=== PATIENT | female | born 1960 | race Caucasian/White ===

== ENCOUNTER 2022-07-27 17:46 | Inpatient (IN) | payer OTHER, SELFPAY ==
[2022-07-27 18:12] LABS: #Basophils 0.1 thou/uL (0.0-0.2); #Eosinphils 0.2 thou/uL (0.0-0.7); #Lymphocytes 1.6 thou/uL (1.20-3.40); #Monocytes 0.4 thou/uL (0.11-0.59); #Neutrophils 4.4 thou/uL (1.40-6.50); %Eosinophils 3.6 % (0.0-10.0); %Lymphocytes 24.1 % (21.0-51.0); %Monocytes 6.3 % (0.0-10.0); %Neutrophils 65.1 % (42.0-75.0); Hemoglobin 14.1 g/dL (12.0-16.0); Mean Corpuscular HGB CONC 33.6 g/dL (32.0-36.0); Mean Corpuscular Hemoglobin 32.6 pg (27.0-31.0); Mean Platelet Volume 6.3 fL (7.4-10.4); Platelet Count 312 10x3/uL (130-400); RBC Distribution Width 10.8 % (11.5-14.5); Red Blood Cell (RBC) Count 4.33 mill/uL (4.20-5.40); White Blood Cell (WBC) Count 6.7 10x3/uL (4.8-10.8)
[2022-07-27] MEDS ORDERED: Rocuronium Bromide 10 MG/ML (10ML VIAL) ONE (18:24)
[2022-07-27] MEDS ORDERED: Propofol 1,000 MG/100 ML VIAL IV ONE (18:37)
[2022-07-27 18:42] LABS: Acetaminophen Less than 10.0 mcg/mL (10.0-30.0); Alcohol Less than 10 mg/dL (Less than 10); Digoxin Less than 0.15 ng/mL (0.8-2.0); Magnesium 2.2 mg/dL (1.6-2.6); Salicylate Less than 8.0 mg/dL (15.0-30.0)
[2022-07-27 18:43] LABS: ALT (SGPT) 22 U/L (8-55); AST (SGOT) 22 U/L (5-34); Albumin 4.9 g/dL (3.4-4.8); Alkaline Phosphatase 94 U/L (40-110); Anion Gap 12 mmol/L (10-20); BUN (Urea Nitrogen) 12 mg/dL (9.8-20.1); Bilirubin, Total 0.3 mg/dL (0.2-1.2); Calc. Creatinine Clearance 0 mL/min (70-130); Calcium 9.9 mg/dL (7.8-10.44); Carbon Dioxide 28 mmol/L (23-31); Chloride 104 mmol/L (98-107); Estimated GFR 92; Globulin 2.8 g/dL (2.4-3.5); Glucose 95 mg/dL (80-115); Lipase 20 U/L (8-78); Potassium 3.9 mmol/L (3.5-5.1); Protein, Total 7.7 g/dL (5.8-8.1); Sodium 140 mmol/L (136-145)
[2022-07-27 18:54] LABS: Actual Bicarbonate (HCO3a) 25.6 mEq/L (22-28); Analyzer IN Cardio ER; Base Excess (BEa) 1.7 mEq/L (-2.0 to +3.0); CO2 Tension 37.8 mmHg (35.0-45.0); Calcium, Ionized (arterial) 1.14 mmol/L (1.12-1.30); Carboxyhemoglobin (COHb) 0.9 gm% (0.0-3.0); O2 Tension (PaO2), arterial 302.4 mmHg (> 80.0); Potassium - ABG Lab 3.09 mmol/L (3.70-5.30); pH, Arterial 7.45 (7.35-7.45)
[2022-07-27 19:11] LABS: Bilirubin Negative (Negative); Blood, Urine Negative (Negative); Clarity Clear (Clear); Glucose, Urine (Dipstick) Normal (Negative); Ketone, Urine Negative (Negative); Leukocyte Negative Leu/uL (Negative); Nitrite Negative (Negative); Protein, Urine (Dipstick) Negative (Neg-Trace); Specific Gravity, Urine 1.007 (1.002-1.036); Urobilinogen Normal mg/dL (Less than 2)
[2022-07-27] MEDS ORDERED: Fentanyl CADD 100 ML IV SCH ×2 (19:15→20:45)
[2022-07-27] MEDS ORDERED: Acetaminophen 650 MG Suppository PR PRN (19:44)
[2022-07-27] MEDS ORDERED: Ondansetron PF 4 MG/2 ML Vial IVP PRN (19:44)
[2022-07-27] MEDS ORDERED: Ondansetron ODT 4 MG TAB PO PRN (19:44)
[2022-07-27] MEDS ORDERED: Electrolyte Replacement Protocol 1 EACH IVPB PRN (19:44)
[2022-07-27] MEDS ORDERED: Bisacodyl 5 MG TAB PO PRN (19:44)
[2022-07-27] MEDS ORDERED: Senokot S 8.6-50 MG TAB PO PRN (19:44)
[2022-07-27] MEDS ORDERED: Ventilator Sedation Protocol 1 EACH FS SCH (19:45)
[2022-07-27] MEDS ORDERED: Dextrose 5%-Lactated Ringers 1,000 ML IV SCH (20:00)
[2022-07-27 20:28] LABS: Puncture Site LBA
[2022-07-27] MEDS ORDERED: DISCONTINUE PREVIOUS NARCOTIC PAIN MEDICATIONS AND BENZODIAZEPINES FS SCH (20:45)
[2022-07-27] MEDS ORDERED: Lorazepam 2 MG/ML VIAL SLOW IVP PRN (20:45)
[2022-07-27] MEDS ORDERED: Morphine 2 MG/ML VIAL SLOW IVP PRN (20:45)
[2022-07-27] MEDS ORDERED: Propofol BOLUS 1,000 MG/100 ML VIAL IV PRN (20:45)
[2022-07-27] MEDS ORDERED: Fentanyl BOLUS 250 ML IVPB PRN (20:45)
[2022-07-27] MEDS ORDERED: Propofol 1,000 MG/100 ML VIAL IV PRN (20:45)
[2022-07-27 21:37] VITALS: BMI 20.7
[2022-07-27 22:52] LABS: Amphetamine Not Detected (NotDetected); Barbiturates Screen Not Detected (NotDetected); Benzodiazepine Screen Detected (NotDetected); Cocaine Metabolite Screen Not Detected (NotDetected); Methadone Not Detected (NotDetected); Methamphetamine Detected (NotDetected); Opiate Screen Not Detected (NotDetected); Oxycodone Screen Not Detected (NotDetected); Phencyclidine (PCP) Not Detected (NotDetected); THC/Cannabinoid Screen Not Detected (NotDetected); Tricyclic Screen Not Detected (NotDetected)
[2022-07-27] MEDS: Famotidine 20 MG TAB PO SCH (22:59)
[2022-07-27 23:16] LABS: SARS-CoV-2 NAA Rapid Test Not Detected (NotDetected)
[2022-07-27] MEDS: Famotidine/PF 20 mg/2ml Vial SLOW IVP SCH (23:55)
[2022-07-28] MEDS ORDERED: Dextrose 5%-Lactated Ringers 1,000 ML IV SCH (01:28)
[2022-07-28] MEDS ORDERED: Lactated Ringer's 1,000 ML IV SCH ×2 (01:30→05:30)
[2022-07-28 03:44] LABS: #Basophils 0.1 thou/uL (0.0-0.2); #Eosinphils 0.2 thou/uL (0.0-0.7); #Lymphocytes 1.5 thou/uL (1.20-3.40); #Monocytes 0.4 thou/uL (0.11-0.59); #Neutrophils 2.9 thou/uL (1.40-6.50); %Basophils 1.3 % (0.0-1.0); %Eosinophils 3.8 % (0.0-10.0); %Lymphocytes 29.5 % (21.0-51.0); %Monocytes 7.3 % (0.0-10.0); %Neutrophils 58.1 % (42.0-75.0); Hemoglobin 11.5 g/dL (12.0-16.0); Mean Corpuscular HGB CONC 33.3 g/dL (32.0-36.0); Mean Corpuscular Hemoglobin 32.2 pg (27.0-31.0); Mean Corpuscular Volume 96.8 fl (78.0-98.0); Mean Platelet Volume 6.2 fL (7.4-10.4); Platelet Count 234 10x3/uL (130-400); RBC Distribution Width 10.9 % (11.5-14.5); Red Blood Cell (RBC) Count 3.56 mill/uL (4.20-5.40); White Blood Cell (WBC) Count 4.9 10x3/uL (4.8-10.8)
[2022-07-28 04:03] LABS: Anion Gap 7 mmol/L (10-20); BUN (Urea Nitrogen) 12 mg/dL (9.8-20.1); Calc. Creatinine Clearance 82 mL/min (70-130); Calcium 8.8 mg/dL (7.8-10.44); Carbon Dioxide 29 mmol/L (23-31); Chloride 108 mmol/L (98-107); Estimated GFR 99; Glucose 115 mg/dL (80-115); Potassium 3.1 mmol/L (3.5-5.1); Sodium 141 mmol/L (136-145)
[2022-07-28] MEDS: Lactated Ringer's 1,000 ML IV SCH ×2 (05:44→13:44)
[2022-07-28] MEDS ORDERED: Potassium Chloride 40 MEQ in Premix Bag 1 BAG IVPB SCH (08:00)
[2022-07-28] MEDS: Famotidine 20 MG TAB PO SCH ×2 (08:17→22:47)
[2022-07-28] MEDS ORDERED: Magnesium 2 GM/50 ML(in water) 1 GM in Premix Bag 1 BAG IVPB SCH (09:00)
[2022-07-28] MEDS ORDERED: hydrALAZINE 20 MG/ML VIAL SLOW IVP PRN (09:04)
[2022-07-28] MEDS: Famotidine/PF 20 mg/2ml Vial SLOW IVP SCH ×2 (09:57→20:40)
[2022-07-28 13:05] LABS: Anion Gap 10 mmol/L (10-20); BUN (Urea Nitrogen) 9 mg/dL (9.8-20.1); Calc. Creatinine Clearance 89 mL/min (70-130); Calcium 8.9 mg/dL (7.8-10.44); Carbon Dioxide 26 mmol/L (23-31); Chloride 108 mmol/L (98-107); Estimated GFR 101; Glucose 92 mg/dL (80-115); Potassium 3.9 mmol/L (3.5-5.1); Sodium 140 mmol/L (136-145)
[2022-07-28] MEDS: Acetaminophen 325 MG TAB PO PRN (17:23)
[2022-07-28 19:05] LABS: Anion Gap 14 mmol/L (10-20); BUN (Urea Nitrogen) 8 mg/dL (9.8-20.1); Calc. Creatinine Clearance 87 mL/min (70-130); Calcium 8.9 mg/dL (7.8-10.44); Carbon Dioxide 22 mmol/L (23-31); Chloride 107 mmol/L (98-107); Estimated GFR 100; Glucose 76 mg/dL (80-115); Potassium 4.4 mmol/L (3.5-5.1); Sodium 139 mmol/L (136-145)
[2022-07-28] MEDS: Heparin 5,000 UNITS/ML VIAL SC SCH (20:40)
[2022-07-29] MEDS: Famotidine/PF 20 mg/2ml Vial SLOW IVP SCH ×2 (09:36→19:21)
[2022-07-29] MEDS: Famotidine 20 MG TAB PO SCH ×2 (09:36→19:21)
[2022-07-29] MEDS: Heparin 5,000 UNITS/ML VIAL SC SCH ×3 (09:38→19:21)
[2022-07-29 12:54] LABS: Anion Gap 12 mmol/L (10-20); BUN (Urea Nitrogen) 10 mg/dL (9.8-20.1); Calc. Creatinine Clearance 80 mL/min (70-130); Calcium 9.1 mg/dL (7.8-10.44); Carbon Dioxide 26 mmol/L (23-31); Chloride 103 mmol/L (98-107); Estimated GFR 99; Glucose 86 mg/dL (80-115); Sodium 137 mmol/L (136-145)
[2022-07-29] MEDS: Nicotine 14 MG PATCH TD PRN (16:40)
[2022-07-29] MEDS: Diazepam 2 MG TAB PO SCH (20:32)
[2022-07-30 07:25] LABS: #Eosinphils 0.3 thou/uL (0.0-0.7); #Lymphocytes 1.8 thou/uL (1.20-3.40); #Monocytes 0.4 thou/uL (0.11-0.59); #Neutrophils 2.3 thou/uL (1.40-6.50); %Basophils 0.8 % (0.0-1.0); %Monocytes 8.8 % (0.0-10.0); %Neutrophils 47.3 % (42.0-75.0); Hemoglobin 12.6 g/dL (12.0-16.0); Mean Corpuscular HGB CONC 31.9 g/dL (32.0-36.0); Mean Corpuscular Hemoglobin 31.4 pg (27.0-31.0); Mean Corpuscular Volume 98.4 fl (78.0-98.0); Mean Platelet Volume 6.4 fL (7.4-10.4); Platelet Count 282 10x3/uL (130-400); RBC Distribution Width 10.8 % (11.5-14.5); Red Blood Cell (RBC) Count 4.01 mill/uL (4.20-5.40); White Blood Cell (WBC) Count 4.8 10x3/uL (4.8-10.8)
[2022-07-30] MEDS: Escitalopram Oxalate 20 mg Tablet PO SCH (08:45)
[2022-07-30] MEDS: Diazepam 2 MG TAB PO SCH ×2 (08:45→20:31)
[2022-07-30] MEDS: Acetaminophen 325 MG TAB PO PRN ×2 (08:46→15:46)
[2022-07-30] MEDS: Famotidine 20 MG TAB PO SCH ×2 (08:46→20:31)
[2022-07-30] MEDS: Heparin 5,000 UNITS/ML VIAL SC SCH ×3 (08:46→19:18)
[2022-07-30] MEDS: Famotidine/PF 20 mg/2ml Vial SLOW IVP SCH ×2 (08:46→19:17)
[2022-07-30] MEDS: Nicotine 14 MG PATCH TD PRN (15:46)
[2022-07-31 08:08] VITALS: BP 91/53; TEMP 98.1
[2022-07-31] MEDS: Famotidine 20 MG TAB PO SCH (09:22)
[2022-07-31] MEDS: Diazepam 2 MG TAB PO SCH (09:22)
[2022-07-31] MEDS: Heparin 5,000 UNITS/ML VIAL SC SCH (09:22)
[2022-07-31] MEDS: Escitalopram Oxalate 20 mg Tablet PO SCH (09:22)
[2022-07-31] MEDS: Famotidine/PF 20 mg/2ml Vial SLOW IVP SCH (09:23)
== END 2022-07-31 14:36 | disposition home or self-care (01) | DRG 917 ==
LOC: ERS 17:46 → CCU 19:46 → NEURO 07-28 17:15 → T4-A 07-29 11:23
PROVIDERS: ADMIT Student in an Organized Health Care Education/Training Program; ATTEND Hospitalist
PROC: 06HY33Z Insertion of Infusion Device into Lower Vein, Percutaneous Approach (ICD-10-PCS; principal; 2022-07-27)
PROC: 0D9670Z Drainage of Stomach with Drainage Device, Via Natural or Artificial Opening (ICD-10-PCS; 2022-07-27)
PROC: 5A1935Z Respiratory Ventilation, Less than 24 Consecutive Hours (ICD-10-PCS; 2022-07-27)
PROC: 0BH17EZ Insertion of Endotracheal Airway into Trachea, Via Natural or Artificial Opening (ICD-10-PCS; 2022-07-27)
PROC: 4A033R1 Measurement of Arterial Saturation, Peripheral, Percutaneous Approach (ICD-10-PCS; 2022-07-27)
DX: T42.4X2A Poisoning by benzodiazepines, intentional self-harm, initial encounter (principal); G93.41 Metabolic encephalopathy; J96.01 Acute respiratory failure with hypoxia; I10 Essential (primary) hypertension; E78.5 Hyperlipidemia, unspecified; E11.9 Type 2 diabetes mellitus without complications; F41.9 Anxiety disorder, unspecified; F43.10 Post-traumatic stress disorder, unspecified; F17.210 Nicotine dependence, cigarettes, uncomplicated; F31.9 Bipolar disorder, unspecified; Z20.822 Contact with and (suspected) exposure to COVID-19; Y92.89 Other specified places as the place of occurrence of the external cause
CPT/HCPCS: 31500; 36415; 36416; 36556; 36600; 51702; 71045; 80048; 80053; 80162; 80306; 80307; 81003; 82805; 83690; 83735; 85025; 93005; 94002; 94003; 96360; 96365; 99292; J1644; J2704; J3010; J3475; J3480; J3490; J7120; S0028; U0002

== ENCOUNTER 2023-08-30 22:03 | Emergency (ER) | payer SELFPAY | END 2023-08-30 22:34 | disposition left against medical advice (07) | LOC: ERS 22:03 | DX: A93.8 Other specified arthropod-borne viral fevers (principal); Z53.21 Procedure and treatment not carried out due to patient leaving prior to being seen by health care provider | CPT/HCPCS: 99282 ==

== ENCOUNTER 2025-03-04 12:35 | Emergency (ER) | payer SELFPAY ==
[~2025-03-04 12:35] MED LIST: Iopamidol-370 76% 500 ML MDV (1 ML CHARGE) ONE
[2025-03-04 15:00] LABS: #Basophils 0.10 10x3/uL (0.0-0.2); #Eosinophils 0.18 10x3/uL (0.0-0.7); #Monocytes 0.61 10x3/uL (0.11-0.59); #Neutrophils 5.86 10x3/uL (1.40-6.50); %Basophils 1.3 % (0.0-1.0); %Eosinophils 2.3 % (0.0-10.0); %Lymphocytes 15.1 % (21.0-51.0); %Monocytes 7.7 % (0.0-10.0); %Neutrophils 73.3 % (42.0-75.0); Hematocrit 30.5 % (36.0-47.0); Hemoglobin 9.1 g/dL (12.0-16.0); Mean Corpuscular Hemoglobin 23.9 pg (27.0-31.0); Mean Corpuscular Volume 80.3 fL (78.0-98.0); Platelet Count 511 10x3/uL (130-400); Red Blood Cell (RBC) Count 3.80 mill/uL (4.20-5.40); White Blood Cell (WBC) Count 7.97 10x3/uL (4.8-10.8)
[2025-03-04] MEDS ORDERED: Ketorolac Tromethamine 30 MG (1 mL) VIAL ONE (15:15)
[2025-03-04 15:16] LABS: ALT (SGPT) 7 U/L (Less than 34); AST (SGOT) 13 U/L (11-34); Albumin 3.1 g/dL (3.1-4.5); Alkaline Phosphatase 117 U/L (40-110); Anion Gap 14 mmol/L (10-20); BUN (Urea Nitrogen) 9 mg/dL (9.8-20.1); Bilirubin, Total 0.2 mg/dL (0.3-1.2); Calc. Creatinine Clearance 0 mL/min (70-130); Calcium 9.6 mg/dL (7.8-10.44); Carbon Dioxide 25 mmol/L (23-31); Chloride 103 mmol/L (98-107); Globulin 3.9 g/dL (2.4-3.5); Glucose 108 mg/dL (80-115); Potassium 3.9 mmol/L (3.5-5.1); Sodium 138 mmol/L (136-145)
== END 2025-03-04 18:56 | disposition home or self-care (01) ==
LOC: ERS 12:35
DX: R91.8 Other nonspecific abnormal finding of lung field (principal); R91.1 Solitary pulmonary nodule; E11.9 Type 2 diabetes mellitus without complications; I10 Essential (primary) hypertension; F17.210 Nicotine dependence, cigarettes, uncomplicated
CPT/HCPCS: 71260; 74177; 80053; 85025; 96374; 96375; J1885; J2270; Q9967